=== PATIENT | male | born 1960 | race Caucasian/White ===

== ENCOUNTER 2016-12-26 07:41 | Emergency (ER) | payer SELFPAY ==
[~2016-12-26] VITALS: Ht 167.6 cm; Wt 80.0 kg
[~2016-12-26 07:41] MED LIST: ASPI-94 PO
[2016-12-26 07:43] VITALS: BP 127/84; PULSE 69; RESP 16; TEMP 98.2; O2SAT 96
[2016-12-26] MEDS ORDERED: ASPI81CH CHEW (07:53)
--- NOTE | 2016-12-26 08:24 | PD ---
HPI Chief Complaint: Musculoskeletal Complaint Time Seen by Provider: 07:53 Travel History International Travel<30 days: No Contact w/Intl Traveler<30days: No Traveled to known affect area: No History of Present Illness HPI This patient had a fall at home. Mechanical fall. He did not have any presyncopal symptoms. He fell down on onto his right side in the standing position. He fell into a recessed area that was 11 inches lower than the surrounding step. Complains of some neck pain and low back pain and right knee pain. He did not strike his head. He has no headache or LOC. Symptoms severity is moderate. He called paramedics who brought him in with immobilization. Duration 1 hour. No alleviating factors PFSH Past Medical History Cardiovascular Problems: Yes ([place] 2003) Diminished Hearing: No Tetanus Vaccination: > 5 Years Influenza Vaccination: No Past Surgical History Surgical History: No Previous Surgery Social History Alcohol Use: No Tobacco Use: Yes (1PPD) Substance Use: No Allergies-Medications (Allergen,Severity, Reaction): Coded Allergies: No Known Allergies (Verified , 01/26/12) Reported Meds & Prescriptions Reported Meds & Active Scripts Active Reported Aspirin 81 Mg Chew 81 Mg CHEW ONCE Review of Systems General / Constitutional: No: Fever Eyes: No: Visual changes HENT: No: Headaches Cardiovascular: No: Chest Pain or Discomfort Respiratory: No: Shortness of Breath Gastrointestinal: No: Abdominal Pain Genitourinary: No: Dysuria Musculoskeletal: Positive: Arthralgias, Limited ROM, Pain Skin: No Rash Neurologic: No: Weakness Psychiatric: No: Depression Endocrine: No: Polydipsia Hematologic/Lymphatic: No: Easy Bruising Physical Exam Narrative GENERAL: Well-nourished, well-developed patient in no apparent distress. SKIN: Focused skin assessment reveals no rash and nodules. Skin is Warm and dry. HEAD: Atraumatic. Normocephalic. EYES: Pupils equal and round. No scleral icterus. No injection or drainage. ENT: No nasal bleeding or discharge. Mucous membranes pink and moist. NECK: Trachea midline. No JVD. No bruising or swelling. C-collar maintained CARDIOVASCULAR: Regular rate and rhythm. No murmur appreciated. RESPIRATORY: No accessory muscle use. Clear to auscultation. Breath sounds equal bilaterally. GASTROINTESTINAL: Abdomen soft, non-tender, nondistended. Hepatic and splenic margins not palpable. MUSCULOSKELETAL: No obvious deformities. No clubbing. No cyanosis. No edema. He has some tenderness of the right patella without bruising or swelling or deformity. There is some midline tenderness in the upper lumbar region without bruising or swelling or objective findings NEUROLOGICAL: Awake and alert. No obvious cranial nerve deficits. Motor grossly within normal limits. Normal speech. PSYCHIATRIC: Appropriate mood and affect; insight and judgment normal. Data Data Last Documented VS Vital Signs Date Time Temp Pulse Resp B/P Pulse Ox O2 Delivery O2 Flow Rate FiO2 12/26/16 08:41 60 16 112/63 98 Room Air 12/26/16 07:43 98.2 Orders Spine, Cervical - Ltd (Ap&Lat) (12/26/16 ) Spine, Lumbar - Ltd (Ap & Lat) (12/26/16 ) Spine, Thoracic-Ap/Lat/Sw(3vw) (12/26/16 ) Knee, Complete (4vws) (12/26/16 ) Acetamin-Hydrocod 325-5 Mg ([place] 5-325 (12/26/16 08:30) MDM Medical Decision Making Medical Screen Exam Complete: Yes Emergency Medical Condition: Yes Medical Record Reviewed: Yes Differential Diagnosis Cervical strain, compression fracture, patella fracture Narrative Course I have reviewed the patient's electronic medical record. Patient was here for back pain in 2012 and had lumbar films then I reviewed his cervical spine films which show arthritic change without fracture I reviewed his thoracic x-rays which show arthritic change without fracture I reviewed his lumbar x-rays which is stable compared to 2012 with arthritic change and no fracture I reviewed his right knee x-rays which are normal Patient is neurologically intact. No objective findings of injury on exam. Gave him 2 pain pills Diagnosis Primary Impression: Low back strain Qualified Code: S39.012A - Low back strain, initial encounter Additional Impressions: Cervical strain, acute Qualified Code: S16.1XXA - Cervical strain, acute, initial encounter Fall (on) (from) other stairs and steps, initial encounter Additional Instructions: The patient was advised to follow up with their physician and return if they worsen. Med/Other Pt SpecificInfo: Other Disposition: 01 DISCHARGE HOME Condition: Stable Frederick Alvarez MD Dec 26, 2016 08:24
[2016-12-26] MEDS ORDERED: ACETAMINOPHEN/HYDROcodone 325 MG/5 MG TAB PO ONE (08:30)
[2016-12-26 08:41] VITALS: BP 112/63; PULSE 60; RESP 16; O2SAT 98
--- NOTE | 2016-12-26 09:05 | RADHPO ---
EXAM DATE/TIME: 12/26/2016 08:04 [facility] COMPARISON: SPINE CERVICAL LTD (AP&LAT), January 26, 2012, 16:56. INDICATIONS : Neck pain post fall. MEDICAL HISTORY : Myocardial infarction. SURGICAL HISTORY : None. ENCOUNTER: Initial ACUITY: 1 day PAIN SCORE: 7/10 LOCATION: cervical spine FINDINGS: Multilevel uncovertebral hypertrophy. No prevertebral soft tissue swelling. Cervicothoracic junction is approximated. Mild disc space narrowing. Multilevel osteophyte formation greatest at C6 and C6-7 w ith endplate sclerosis present at this level. Odontoid process is intact. CONCLUSION: Multilevel degenerative changes without fracture or listhesis. Dave Hudson MD on December 26, 2016 at 9:02 Board Certified Radiologist. This report was verified electronically.
--- NOTE | 2016-12-26 09:06 | RADHPO ---
EXAM DATE/TIME: 12/26/2016 08:16 [facility] COMPARISON: No previous studies available for comparison. INDICATIONS : Right knee pain post fall. MEDICAL HISTORY : Myocardial infarction. SURGICAL HISTORY : None. ENCOUNTER: Initial ACUITY: 1 day PAIN SCORE: 7/10 LOCATION: Right knee FINDINGS: Four view examination of the right knee demonstrates no evidence of fracture or dislocation. Bony mi neralization is normal. The articular surfaces are intact. The suprapatellar soft tissues have a no rmal configuration. A small metallic radiodensity measuring 4 mm is present at the lateral aspect of the knee lateral to the patella. CONCLUSION: No acute disease. Dave Hudson MD on December 26, 2016 at 9:04 Board Certified Radiologist. This report was verified electronically.
--- NOTE | 2016-12-26 09:07 | RADHPO ---
EXAM DATE/TIME: 12/26/2016 08:19 [facility] COMPARISON: No previous studies available for comparison. INDICATIONS : Thoracic spine pain post fall. MEDICAL HISTORY : Myocardial infarction. SURGICAL HISTORY : None. ENCOUNTER: Initial ACUITY: 1 day PAIN SCORE: 7/10 LOCATION: thoracic spine FINDINGS: There is normal alignment of the thoracic vertebral bodies. Vertebral body height is maintained. No evidence of fracture or subluxation. Pedicles are intact at all levels. The paravertebral reflecti ons are not thickened. Multilevel osteophyte formation is noted. Mild disc space narrowing. CONCLUSION: Degenerative changes without evidence for acute fracture or listhesis. Dave Hudson MD on December 26, 2016 at 9:05 Board Certified Radiologist. This report was verified electronically.
--- NOTE | 2016-12-26 09:08 | RADHPO ---
EXAM DATE/TIME: 12/26/2016 08:20 [facility] COMPARISON: SPINE THORACIC AP/LAT/SW (3VW), January 26, 2012, 16:56. SPINE LUMBAR COMPLETE W/OBLIQ, January 26, 2012, 16 :55. INDICATIONS : Low back pain post fall. MEDICAL HISTORY : Myocardial infarction. SURGICAL HISTORY : None. ENCOUNTER: Initial ACUITY: 1 day PAIN SCORE: 7/10 LOCATION: lumbar spine FINDINGS: Two view examination was performed. There are five non-rib bearing vertebral bodies. The vertebral bodies are in normal alignment without evidence of subluxation or scoliosis. The disc spaces are fabio ntained. The pedicles are intact. Bony mineralization is normal. No fracture is identified. Multil evel osteophyte formation. No compression deformity. Stable small node at the inferior endplate of L1 . Moderate facet hypertrophy L4-5 and L5-S1. CONCLUSION: Stable multilevel degenerative changes. Dave Hudson MD on December 26, 2016 at 9:05 Board Certified Radiologist. This report was verified electronically.
[2016-12-26 09:37] VITALS: BP 114/68
== END 2016-12-26 09:43 | disposition home or self-care (01) ==
LOC: PHED 07:41
DX: S39.012A Strain of muscle, fascia and tendon of lower back, initial encounter (principal); S16.1XXA Strain of muscle, fascia and tendon at neck level, initial encounter; M54.6 Pain in thoracic spine; M25.561 Pain in right knee; F17.210 Nicotine dependence, cigarettes, uncomplicated; I25.2 Old myocardial infarction; W17.89XA Other fall from one level to another, initial encounter; Y99.9 Unspecified external cause status; Y92.009 Unspecified place in unspecified non-institutional (private) residence as the place of occurrence of the external cause; Y93.9 Activity, unspecified
CPT/HCPCS: 72040; 72072; 72100; 73564; 99284